=== PATIENT | male | born 1970 | race Caucasian/White ===

== ENCOUNTER 2018-05-06 13:50 | Emergency (ER) | payer SELFPAY ==
[~2018-05-06] VITALS: Ht 157.5 cm; Wt 62.1 kg
[~2018-05-06 13:50] MED LIST: CEPH-443 PO; IBUP-1542 PO
[2018-05-06 13:54] VITALS: BP 143/76; PULSE 76; RESP 18; Ht 157.5 cm; Wt 62.1 kg
--- NOTE | 2018-05-06 15:56 | ERD ---
ER Documentation Chief Complaint Chief Complaint SUTURE REMOVAL ON RT HAND HPI 48-year-old male, patient healthy, presents to the emergency department for wound check of a laceration of the right hand. The patient refers feeling better, he is complaining of mild pain and erythema around the wound but no fever or chills. Good compliance with medications. ROS All systems reviewed and are negative except as per history of present illness. Medications Home Meds Active Scripts Bacitracin* (Bacitracin Zinc Oint*) 28.35 Gm Oint, 1 APPLIC TOP BID for 5 Days, #1 TUB APPLI TO Prov:OSVALDO CARRANZA MD 05/06/18 Cephalexin* (Keflex*) 500 Mg Capsule, 500 MG PO QID for 7 Days, CAP Prov:JOANNA GUERRA PA-C 05/01/18 Ibuprofen* (Motrin*) 600 Mg Tab, 600 MG PO Q6, #30 TAB Prov:JOANNA GUERRA PA-C 05/01/18 Allergies Allergies: Coded Allergies: No Known Allergy (Unverified , 05/03/18) PMhx/Soc Medical and Surgical Hx: pt denies Medical Hx, pt denies Surgical Hx Hx Miscellaneous Medical Probl: Yes (DM) Hx Alcohol Use: No Hx Substance Use: No Hx Tobacco Use: Yes Smoking Status: Never smoker Physical Exam Vitals Vital Signs Date Temp Pulse Resp B/P (MAP) Pulse Ox O2 O2 Flow FiO2 Time Delivery Rate 05/06/18 98.0 76 18 143/76 98 13:54 (98) Physical Exam Const: No acute distress Head: Atraumatic Eyes: Normal Conjunctiva ENT: Normal External Ears, Nose and Mouth. Neck: Full range of motion. No meningismus. Resp: Clear to auscultation bilaterally Cardio: Regular rate and rhythm, no murmurs Abd: Soft, non tender, non distended. Normal bowel sounds Skin: No petechiae or rashes Back: No midline or flank tenderness Ext: Right hand with 4 cm linear laceration wound clean, dry and intact. Neur: Awake and alert Psych: Normal Mood and Affect Procedures/MDM Status post laceration repair 5 days ago. Adequate pain control, no fever, no chills, good compliance with medications no side effects. The patient was evaluated for infection and neurovascular compromise. The wound was clean and irrigated with normal saline and dressing applied. The patient was instructed to return to the emergency department in 4-5 days for stitches removal. Patient is stable, with adequate healing process, okay to discharge home, medication adherence reinforced. some side effects of prescribed medications (headache, rash, nausea, vomiting, diarrhea, drowsiness, habituation, bleeding, hypertension, interactions with other medications) were reviewed. The patient was instructed to follow up with the primary care provider in the next 48h. If symptoms persist, worsen or new symptoms develop, then patient should return to the ED immediately. Instructions explained and given directly by me to the patient with acknowledgment and demonstrated understanding. Disclaimer: Inadvertent spelling and grammatical errors are likely due to EHR/dictation software use and do not reflect on the overall quality of patient care. Also, please note that the electronic time recorded on this note does not necessarily reflect the actual time of the patient encounter. Departure Diagnosis: Primary Impression: Suture check Condition: Stable Patient Instructions: Suture Care Additional Instructions: Muchas whit por [facility] para park servicio. Esperamos que en park visita a la savanna de emergencia park problema medico haya sido solucionado y que se sienta mucho mejor. Para estar seguros que park mejoria sigue en proceso, le pedimos el favor de hacer heather akira de seguimiento medico con park doctor primario en los proximos 2-4 tobias. Lleve con usted estos documentos y las medicinas recetadas. Si serafin sintomas empeoran, NO SE ESPERE, por favor regrese a savanna de emergencia INMEDIATAMENTE. En saskia que usted no tenga un mdico de atencin primaria: Llame al mdico o clnica comunitaria de referencia que aparece abajo maddie las horas de consultorio para hacer heather akira para que le vean. CLINICAS: [facility] [phone] [facility] [phone] [address] [facility] [phone] [facility] [phone] [id number] [facility] [phone] [address] [facility]. [phone] OSVALDO BARAJAS MD May 06, 2018 15:56
[2018-05-06] MEDS ORDERED: BACI28.34 TOP (15:57)
== END 2018-05-06 16:20 | disposition home or self-care (01) ==
LOC: FTE 13:50
DX: Z48.01 Encounter for change or removal of surgical wound dressing (principal); E11.9 Type 2 diabetes mellitus without complications; Z87.891 Personal history of nicotine dependence
CPT/HCPCS: 99282

== ENCOUNTER 2018-05-09 15:25 | Emergency (ER) | payer SELFPAY ==
[~2018-05-09] VITALS: Ht 172.7 cm; Wt 61.1 kg
[~2018-05-09 15:25] MED LIST changes: +BACI28.34 TOP
[2018-05-09 15:38] VITALS: BP 153/82; PULSE 94; RESP 18; Ht 172.7 cm; Wt 61.1 kg
--- NOTE | 2018-05-09 17:58 | ERD ---
ER Documentation Chief Complaint Chief Complaint right 4th digit suture removal HPI 48-year-old male presents with laceration of his fourth digit on the right 10 days ago here for evaluation for suture removal. Is no restricted range of motion weakness or bleeding or discharge. ROS All systems reviewed and are negative except as per history of present illness. Medications Home Meds Active Scripts Bacitracin* (Bacitracin Zinc Oint*) 28.35 Gm Oint, 1 APPLIC TOP BID for 5 Days, #1 TUB APPLI TO Prov:OSVALDO CARRANZA MD 05/06/18 Cephalexin* (Keflex*) 500 Mg Capsule, 500 MG PO QID for 7 Days, CAP Prov:JOANNA GUERRA PA-C 05/01/18 Ibuprofen* (Motrin*) 600 Mg Tab, 600 MG PO Q6, #30 TAB Prov:JOANNA GUERRA PA-C 05/01/18 Allergies Allergies: Coded Allergies: No Known Allergy (Unverified , 05/03/18) PMhx/Soc Hx Miscellaneous Medical Probl: Yes (DM) Hx Alcohol Use: No Hx Substance Use: No Hx Tobacco Use: Yes Physical Exam Vitals Vital Signs Date Temp Pulse Resp B/P (MAP) Pulse Ox O2 O2 Flow FiO2 Time Delivery Rate 05/09/18 98.7 94 18 153/82 95 15:38 (105) Physical Exam Const: No acute distress Head: Atraumatic Eyes: Normal Conjunctiva ENT: Normal External Ears, Nose and Mouth. Neck: Full range of motion. No meningismus. Resp: Clear to auscultation bilaterally Cardio: Regular rate and rhythm, no murmurs Abd: Soft, non tender, non distended. Normal bowel sounds Skin: No petechiae or rashes Back: No midline or flank tenderness Ext: No cyanosis, or edema. Healing laceration on the right fourth digit. Surrounding irritation without warmth, erythema, bleeding or discharge. Patient has full range of motion. Neur: Awake and alert Psych: Normal Mood and Affect Procedures/MDM Sutures removed without complications. Patient has satisfactory healing right fourth digit laceration without signs of infection, ischemia or deficits, and will be discharged home with return precautions for fevers, redness, bleeding, discharge, new or worsening symptoms. Departure Diagnosis: Primary Impression: Encounter for removal of sutures Condition: Stable Patient Instructions: Suture Removal, No Complication ENRIQUE KO MD May 09, 2018 17:58
== END 2018-05-09 18:30 | disposition home or self-care (01) ==
LOC: FTE 15:25
DX: Z48.02 Encounter for removal of sutures (principal); E11.9 Type 2 diabetes mellitus without complications; Z87.891 Personal history of nicotine dependence
CPT/HCPCS: 99281